=== PATIENT | female | born 1945 | race Caucasian/White ===

== ENCOUNTER → 2017-03-04 | Outpatient (CLI) | payer MEDICARE ==
--- NOTE | 2017-03-04 15:52 | MAMMOGRAPHY REPORT ---
BILATERAL DIGITAL SCREENING MAMMOGRAM TOMOSYNTHESIS WITH CAD: 03/04/2017 CLINICAL HISTORY: Routine screening. Patient has no complaints. TECHNIQUE: Breast tomosynthesis in addition to standard 2D mammography was performed. Current study was also evaluated with a Computer Aided Detection (CAD) system. COMPARISON: Comparison is made to exams dated: 07/06/2012 mammogram, 07/06/2011 mammogram, 06/19/2010 ma mmogram, 05/31/2009 mammogram - [facility], 05/30/2008, and 05/30/2007. BREAST COMPOSITION: There are scattered areas of fibroglandular density in both breasts. FINDINGS: There is a 10 mm focal asymmetry with associated architectural distortion in the right uppe r outer quadrant, best seen on the tomosynthesis images, for which spot compression tomosynthesis vie ws and possible breast ultrasound are recommended for further evaluation. The remainder of both breasts are stable compared to prior exams, without suspicious masses, calcific ations, or areas of architectural distortion noted. Other bilateral asymmetries are stable compared to prior exams. IMPRESSION: ACR BI-RADS CATEGORY 0: INCOMPLETE EVALUATION: NEED ADDITIONAL IMAGING EVALUATION Right breast focal asymmetry with associated architectural distortion, for which additional imaging e valuation is recommended. The patient will be called to schedule an appointment. Approximately 10% of breast cancers are not detected with mammography. A negative mammographic report should not delay biopsy if a clinically suggestive mass is present. Cassi Snowden M.D. /:03/04/2017 12:12:32 Prism Inspector: Kesha Merino, [facility] letter sent: Addl Imaging 0 BI-RADS Code: ACR BI-RADS Category 0: Incomplete Evaluation: Need Additional Imaging Evaluation
== END | disposition home or self-care (01) ==
LOC: C.MAMM 10:29
PROVIDERS: ATTEND Family Medicine
DX: Z12.31 Encounter for screening mammogram for malignant neoplasm of breast (principal); N64.89 Other specified disorders of breast

== ENCOUNTER → 2017-03-10 | Outpatient (CLI) | payer MEDICARE ==
--- NOTE | 2017-03-10 15:42 | MAMMOGRAPHY REPORT ---
ULTRASOUND OF RIGHT BREAST: 03/10/2017 CLINICAL HISTORY: 71-year-old woman called back from screening mammography for a 10 mm focal asymmetr y with associated architectural distortion in the upper outer middle to posterior right breast. COMPARISON: Comparison is made to exams dated: 03/04/2017 mammogram, 07/06/2012 mammogram, 07/06/2011 m ammogram, 06/19/2010 mammogram, 05/31/2009 mammogram - [facility], and 05/30/2008. FINDINGS: Targeted ultrasound was performed in the right upper outer quadrant to assess for the 10 m m focal asymmetry with associated architectural distortion seen on recent screening mammogram. In th e 10:00 axis, 10 cm from the nipple, there is a hypoechoic and isoechoic solid mass with ill-defined and irregular margins, measuring approximately 7.7 x 4.0 x 5.6 mm. The architectural distortion is n ot well appreciated on ultrasound, but this mass likely correlates with the mammographic finding. Th is is suspicious for malignancy and definitive characterization with an ultrasound-guided core needle biopsy is recommended. Additional scanning was performed in the right axilla, which demonstrates 2 morphologically normal ly mph nodes with thin cortices. No suspicious lymphadenopathy is currently identified. IMPRESSION: ACR BI-RADS CATEGORY 5: HIGHLY SUGGESTIVE OF MALIGNANCY - FOLLOW-UP RECOMMENDED 1. There is an irregular and ill-defined solid 7.7 mm mass in the 10:00 right breast, 10 cm from the nipple on ultrasound, thought to correlate with the mammographic focal asymmetry with associated arc hitectural distortion. This mass is suspicious for malignancy and definitive characterization with a n ultrasound-guided core biopsy is recommended. 2. No suspicious lymphadenopathy identified in the right axilla on targeted ultrasound. These results and recommendations were discussed with the patient at the time of the exam. She tenta tively scheduled the right breast biopsy prior to leaving our department. Marta River M.D. ay/:03/10/2017 11:47:30 Manager Primary Care: Dr. Marta River, [facility] letter sent: Abnormal 4/5 BI-RADS Code: ACR BI-RADS Category 5: Highly Suggestive Of Malignancy
== END | disposition home or self-care (01) ==
LOC: C.MAMM 10:28
PROVIDERS: ATTEND Family Medicine
DX: N64.9 Disorder of breast, unspecified (principal); N63.10 Unspecified lump in the right breast, unspecified quadrant

== ENCOUNTER → 2017-03-17 | Outpatient (CLI) | payer MEDICARE ==
--- NOTE | 2017-03-17 09:58 | Discharge Instructions ---
Discharge Instructions Procedure Procedure Date: Mar 17, 2017. Reason for visit: Right Mass. Discharge Discharge Date: Mar 17, 2017. Discharge Diagnosis: status post breast biopsy Instructions Activity Recommendations: Additional Limitations (see below) Return to School/Work: no limitations Recommended Home Diet: No Limitations Provider Instructions: ACTIVITY RECOMMENDATIONS: * No lifting, pushing, pulling or exercising the affected side for three days. RETURN TO SCHOOL/WORK: * You may return to work/school after the procedure, but do not perform any strenuous activities for 24 to 48 hours. MEDICATIONS: * Tylenol (two 325 mg) every four to six hours if needed for mild pain (if not allergic to Tylenol). DIET: * Resume previous diet. SPECIAL CARE INSTRUCTIONS: * Keep biopsy site dry for 24 hours. May shower after 24 hours, but do not soak (bathe) incision. * May remove Tegaderm (plastic patch) tomorrow AFTER showering. * Leave the steri-strips on for one week. Allow the steri-strips to fall off by themselves. If not off after one week, you may remove them. You may place a Bandaid crosswise over the strips, if desired. * Apply ice 10 minutes on and 10 minutes off as needed. * Wear a bra at bedtime to sleep more comfortably for 2-3 days. * Your referring physician should have the results after approximately 5 to 7 business days. * Call for unusual bleeding, fever, drainage, etc or if you have any questions call during normal business hours or after hours call Dr Snowden, [phone]. FOLLOW UP VISIT: Follow-up with Referring Physician as scheduled. Elizabeth Barker Recommendations: Call your doctor if: * Temperature above 101 degrees * Pain not relieved by pain medicine ordered * There is increased drainage or redness from any incision * You have any unanswered questions or concerns. Your Doctors Instructions noted above were prepared by provider Cassi Snowden. Patient Signature Section: Patient Instructions Signature Page Bia Hussein Patient (or Guardian) Signature/Date: I have read and understand the instructions given to me by my caregivers. Caregiver/RN/Doctor Signature/Date: The above-named patient and/or guardian has received patient instructions on this date. + Original Patient Signature Page (only) stays with chart. Please make copy for patient.
--- NOTE | 2017-03-17 15:21 | MAMMOGRAPHY REPORT ---
ULTRASOUND GUIDED BIOPSY RIGHT BREAST: 03/17/2017 CLINICAL HISTORY: Right 10:00 breast mass. PATIENT CONSENT: The procedure, risks and benefits were discussed with the patient and informed writt en consent was obtained. A timeout was performed immediately prior to the procedure. PROCEDURE DESCRIPTION: With ultrasound guidance, aseptic technique, and lidocaine as the local anesth etic (1% lidocaine to anesthetize the skin and 1% lidocaine with epinephrine to anesthetize the deepe r tissues), the mass of concern in the right 10:00 breast posteriorly was sampled 4 times with a 14-g auge Achieve biopsy needle (using open-bevel technique due to the far posterior location) . Immediat sayda thereafter, with ultrasound guidance, aseptic technique, and lidocaine as the local anesthetic, a metallic localizer clip was placed at the biopsy site. Direct pressure was applied to the site imme diately post procedure and hemostasis was achieved. Postprocedure unilateral mammograms were perform ed to confirm placement of the clip in the expected location of the breast mass. The patient tolerate d the procedure without complication. She was given wound care instructions. The specimens were sent to pathology for analysis. COMPARISON: Comparison is made to exams dated: 03/10/2017 ultrasound, 03/04/2017 mammogram, 07/06/2012 mammogram, 07/06/2011 mammogram, 06/19/2010 mammogram, and 05/31/2009 mammogram - [facility] enter. IMPRESSION: ULTRASOUND GUIDED BIOPSY Ultrasound guided core needle biopsy of the right 10:00 breast mass, with clip placement. The patien t will receive pathology results from her referring provider. Cassi Snowden M.D. ah/:03/17/2017 10:00:01 Attending Technologist: Sheila DE(R)(M), [facility] [employer] Software Engineer: Cassi Snowden MD, [facility]
--- NOTE | 2017-03-17 15:24 | MAMMOGRAPHY REPORT ---
UNILATERAL RIGHT DIGITAL DIAGNOSTIC MAMMOGRAM TOMOSYNTHESIS: 03/17/2017 CLINICAL HISTORY: Status post right breast biopsy. TECHNIQUE: Breast tomosynthesis in addition to standard 2D mammography was performed. Current study was also evaluated with a Computer Aided Detection (CAD) system. Postprocedural right CC and ML wilson synthesis images including C views were obtained. COMPARISON: Comparison is made to exams dated: 03/10/2017 ultrasound, 03/04/2017 mammogram, 07/06/2012 mammogram, 07/06/2011 mammogram, 06/19/2010 mammogram, and 05/31/2009 mammogram - [facility] enter. BREAST COMPOSITION: There are scattered areas of fibroglandular density in the right breast. FINDINGS: A new biopsy marker clip is seen at the site of the biopsied mass in the right upper outer quadrant. No significant postbiopsy hematoma is seen. IMPRESSION: POST PROCEDURE IMAGING FOR MARKER PLACEMENT New biopsy marker clip status post right breast biopsy. Pathology results are pending. Approximately 10% of breast cancers are not detected with mammography. A negative mammographic report should not delay biopsy if a clinically suggestive mass is present. Cassi Snowden M.D. /:03/17/2017 11:12:21 Glycerin Operator: Sheila DE(Ekaterina)(M), [facility] BI-RADS Code: Post Procedure Imaging For Marker Placement
== END | disposition home or self-care (01) ==
LOC: C.MAMM 09:07
PROVIDERS: ATTEND Family Medicine
DX: R92.8 Other abnormal and inconclusive findings on diagnostic imaging of breast (principal); N63.10 Unspecified lump in the right breast, unspecified quadrant; D49.3 Neoplasm of unspecified behavior of breast

== ENCOUNTER 2017-04-22 07:46 | Observation (INO) | payer MEDICARE ==
[2017-04-15 09:10] VITALS: BMI 28.0
[~2017-04-22] VITALS: Ht 162.6 cm; Wt 75.0 kg
[2017-04-22] VITALS (9 sets, daily range): BP systolic 126–171; BP diastolic 70–78; PULSE 71–85; TEMP 36.4–37.4; O2SAT 94–99; Ht 162.6 cm; Wt 75.0 kg
[~2017-04-22 07:46] MED LIST: LEVO88TA3 PO
[2017-04-22] MEDS ORDERED: ONDANSETRON INJ 2 MG/ML 2 ML VIAL IV PRN ×3 (08:45→16:45)
[2017-04-22] MEDS ORDERED: ATROPINE SULFATE 0.1 MG/ML 5ML SYR IV PRN (08:45)
[2017-04-22] MEDS ORDERED: HYDROmorphone INJ 1 MG/ML SYR IV PRN (08:45)
[2017-04-22] MEDS ORDERED: FENTANYL CITRATE INJ 50 MCG/1 ML 2 ML VIAL IV PRN (08:45)
[2017-04-22] MEDS ORDERED: EpHEDrine SULFATE INJ 50 MG/ML AMP IV PRN (08:45)
[2017-04-22] MEDS ORDERED: CEFAZOLIN 2000MG IV PUSH 15 ML IV SCH (10:00)
[2017-04-22] MEDS ORDERED: FENTANYL CITRATE INJ 50 MCG/1 ML 2 ML VIAL ONE ×4 (10:45→13:37)
[2017-04-22] MEDS ORDERED: MIDAZOLAM HCL 1 MG/ML 2ML VIAL ONE (10:45)
[2017-04-22] MEDS ORDERED: BUPIVACAINE 0.5 % 5 MG/1 ML MPF 30ML VIAL ONE (11:23)
[2017-04-22] MEDS ORDERED: ISOSULFAN BLUE 10 MG/ML VIAL 5 ML ONE (11:23)
--- NOTE | 2017-04-22 11:24 | DIAGNOSTIC IMAGING REPORT ---
LYMPHOSCINTIGRAPHY BREAST CLINICAL HISTORY: RIGHT BREAST CA breast carcinoma TECHNIQUE: Sequential periareolar injections of a total of 0.527 mCi technetium 99m lymphocele COMPARISON STUDY: None FINDINGS: Imaging to 2 hours shows no identification of a sentinel node. IMPRESSION: 1. Successful periareolar injection. 2. No evidence for a sentinel node x 2 h of imaging. The above report was generated using voice recognition software. It may contain grammatical, syntax or spelling errors. Electronically signed by: Clark Meyers M.D. 04/22/2017 11:22 AM Dictated Date/Time: 04/22/2017 11:21 AM
--- NOTE | 2017-04-22 11:24 | History & Physical Bridge Note ---
H&P Re-Evaluation Bridge Note: I have examined the patient, reviewed the History & Physical and in the interval since the performance of the History & Physical I have noted the following changes of clinical significance: No changes noted
[2017-04-22] MEDS ORDERED: HYDROmorphone INJ 2 MG/ML SYR/VIAL ONE (13:42)
[2017-04-22] MEDS ORDERED: OXYC-57 PO (14:08)
--- NOTE | 2017-04-22 14:09 | Discharge Instructions ---
Discharge Instructions Date of Service Apr 22, 2017. Visit Reason for Visit: Right Breast Cancer W/Hosp Loc & Nm Lymph Scan Discharge Discharge Diagnosis / Problem: right lumpectomy, lymph node biopsy Discharge Goals Goal(s): Improve disease control Activity Recommendations Activity Limitations: as noted below Shower/Bathe: no limitations Driving or Machine Use: resume 3 days after discharge Anesthesia . Post Anesthesia Instructions: If you have had General Anesthesia or IV Sedation: * Do not drive today. * Resume driving when surgeon permits. * Do not make important decisions or sign legal documents today. * Call surgeon for: 1. Temperature elevations greater than 101 degrees F. 2. Uncontrollable pain. 3. Excessive bleeding. 4. Persistent nausea and vomiting. 5. Medication intolerance (nausea, vomiting or rash). * For nausea and vomiting use only clear liquids such as: tea, soda, bouillon until nausea subsides, then gradually increase diet as tolerated. * If you have any concerns or questions, call your surgeon's office. If physician is unavailable and it is an emergency, call 911 or go to the nearest emergency room. . Instructions / Follow-Up Instructions / Follow-Up Dr. Salazar in 1-2 weeks as planned, call [phone] if you do not already have an appt or have any questions Diet Recommendations Recommended Home Diet: no limitations Pending Studies Studies pending at discharge: yes List of pending studies: pathology Medical Emergencies . Who to Call and When: Medical Emergencies: If at any time you feel your situation is an emergency, please call 911 immediately. . Non-Emergent Contact Non-Emergency issues call your: Surgeon Call Non-Emergent contact if: you have a fever, temperature is above 101.5, your pain is not controlled, wound has increased redness, you have any medication questions . . "Provider Documentation" section prepared by Tay Matthew. .
[2017-04-22] MEDS ORDERED: DEXAMETHASONE SOD INJ 4 MG/ML VIAL ONE (14:30)
[2017-04-22] MEDS ORDERED: ONDANSETRON INJ 2 MG/ML 2 ML VIAL ONE (14:30)
[2017-04-22] MEDS ORDERED: LIDOCAINE HCL 2% 2 ML VIAL (20MG/ML) ONE (14:30)
[2017-04-22] MEDS ORDERED: PROPOFOL IV EMULSION 10 MG/ML 20 ML VIAL IV ONE (14:30)
[2017-04-22] MEDS ORDERED: EpHEDrine SULFATE 50MG/5ML SYR ONE ×2 (14:30→14:39)
[2017-04-22] MEDS ORDERED: RANITIDINE HCL 25 MG/ML INJ ONE (14:30)
--- NOTE | 2017-04-22 14:58 | [facility] Post Operative Brief Note ---
Immediate Operative Summary Operative Date Apr 22, 2017. Pre-Operative Diagnosis Right breast cancer Post-Operative Diagnosis Same Procedure(s) Performed Right Breast Lumpectomy with Needle Localization and Right Axillary Lymph Node Dissection Surgeon Dr Salazar [employer] Specialist Surgeon(s) Alicia Bethea PA-C Estimated Blood Loss 20 ml Findings Consistent with Post-Op Diagnosis No sentinel node identified despite methylene blue technetium injection Specimens A. Right breast mass short suture superior, long suture lateral, double suture deep B. Right axillary lymph node dissection Drains 7 mm SAMARA drain in the right axilla Anesthesia Type General Complication(s) none Disposition Disposition: Recovery Room / PACU
--- NOTE | 2017-04-22 15:05 | MAMMOGRAPHY REPORT ---
NEEDLE LOCALIZATION RIGHT BREAST: 04/22/2017 CLINICAL HISTORY: Biopsy-proven malignancy in the right 10:00 breast. PROCEDURE DESCRIPTION: With imaging guidance, aseptic technique, and 1% lidocaine as the local anesth etic, the mass and associated biopsy marker clip in the right 10:00 breast was localized with a 7.5 c m Edward II needle. The path of approach was lateral. The biopsy marker clip and mass are located along the distal portion of the wire, at and just proximal to the marco. The patient tolerated the pro cedure without complication. COMPARISON: Comparison is made to exams dated: 03/17/2017 mammogram, 03/17/2017 ultrasound biopsy, 02/16 ultrasound, 03/04/2017 mammogram, 07/06/2012 mammogram, and 07/06/2011 mammogram - [facility]. IMPRESSION: NEEDLE LOCALIZATION Mammographic-guided needle localization of mass and associated biopsy clip in the right 10:00 breast. Cassi Snowden M.D. ah/:04/22/2017 08:20:53 Territory Sales Professional: Sheila DE(R)(M), [facility]
--- NOTE | 2017-04-22 15:05 | MAMMOGRAPHY REPORT ---
SPECIMEN RIGHT BREAST: 04/22/2017 CLINICAL HISTORY: Status post right breast surgical excision. COMPARISON: Comparison is made to exams dated: 03/17/2017 mammogram, 03/17/2017 ultrasound biopsy, 02/16 ultrasound, 07/06/2012 mammogram, 03/04/2017 mammogram, and 07/06/2011 mammogram - [facility]. Findings: A radiograph was performed on the right breast surgical specimen. The localized biopsy mar ker clip and intact needle localization wire are present centrally within the specimen. Results were relayed to Dr. Salazar over the telephone. IMPRESSION: SPECIMEN The imaged specimen contains the preoperatively-localized biopsy clip. Cassi Snowden M.D. ah/:04/22/2017 13:17:28 Program Paraprofessional: Sheila DE(Ekaterina)(M), [facility]
[2017-04-22] MEDS ORDERED: SODIUM CHLORIDE 0.9% 1000ML 1,000 ML IV SCH (15:09)
[2017-04-22] MEDS ORDERED: OXYCODONE/ACETAMINOPHEN 5-325 TAB PO PRN ×4 (15:15→16:45)
--- NOTE | 2017-04-22 15:15 | [facility] Operative Report ---
Operative Report Operative Date Apr 22, 2017. Pre-Operative Diagnosis Right breast cancer Post-Operative Diagnosis Same Procedure(s) Performed Right breast wire localized lumpectomy right axillary lymph node dissection Surgeon Dr Salazar Ivory Carver Surgeon(s) Alicia Bethea PA-C Estimated Blood Loss 20 ml Findings Technetium injection did not appear to reach the axilla on lymphoscintigraphy and was not identified with the gamma probe. Methylene blue was injected around the areola, but upon entry into the axilla no sentinel node was identified. A right axillary lymph node dissection was then performed. Right breast lumpectomy specimen x-ray showed the clip and wire and specimen. Specimens A. Right breast mass short suture superior, long suture lateral, double suture deep B. Right axillary lymph node dissection Drains 7 mm SAMARA drain in the right axilla Anesthesia General Complication(s) None Disposition Recovery Room / PACU Indications 71-year-old female with right breast cancer, plan for right breast wire localized lumpectomy with right axillary sentinel lymph node biopsy. The risks of the procedure were discussed, all questions were answered, and the patient agreed to proceed with surgery as planned. Description of Procedure The patient had a localization wire placed in radiology prior to surgery. The films were reviewed for incisional planning. Patient had lymphoscintigraphy performed prior to the procedure and the axilla was examined with a gamma probe and there was no uptake into the axilla. Methylene blue was then injected around the areola and the breast was massaged. The patient was properly identified, consented, and taken to the operating room where she was placed in the supine position. General endotracheal anesthesia was induced. SCDs and a safety belt were placed. Preoperative antibiotics were administered. The patient's bilateral chest was prepped and draped in the standard sterile fashion. Surgical timeout was performed and all parties were in agreement that this was the correct patient and procedure to be performed and we continued as planned. An incision was made in the right axilla in a natural skin crease and deepened down to subcutaneous tissue with electrocautery. The gamma probe was used but the axilla was silent. The axilla was explored and blue dye was not identified. At this point we decided to perform a right axillary lymph node dissection. Lymph node packet was excised down to the serratus muscle medially , latissimus muscle laterally, the axillary vein superiorly, pectoralis superiorly, the teres major posteriorly. Clips were used to control small vessels and lymphatics. Lymph node packet was passed off the table specimen labeled right axillary lymph node dissection. We limited the dissection to level 1 nodes but did not go under the pectoralis minor muscle. The wound was packed and attention turned to the breast lesion. A transverse incision was made on the upper outer quadrant of the right breast and deepened down through the subcutaneous tissue with electrocautery. Flaps were raised in all directions. Wire was delivered into the incision. The breast mass was circumferentially dissected down to chest wall, excised, and passed off the table as specimen. The specimen was oriented. A mammogram was performed of the specimen in radiology and confirmed excision of the wire, clip , and previously imaged abnormality. The wounds were irrigated and hemostasis was confirmed. The skin of both incisions was closed with interrupted 3-0 Vicryl deep dermal sutures, followed by 4-0 Monocryl running subcuticular suture. Dermabond was placed over the wounds. The patient was extubated in the operating room and taken to the PACU where she recovered without apparent incident. All sponge, instrument and needle counts were correct at the conclusion of the procedure. The patient tolerated the procedure well. The physician's client account assistant was present and scrubbed for the entirety of the case. She was essential in positioning the patient, prepping and draping, removal of the breast mass, retraction and exposure, assisting with axillary dissection, closure of the wound, and placement of the dressings. I attest to the content of the Intraoperative Record and any orders documented therein. Any exceptions are noted below.
--- NOTE | 2017-04-22 15:47 | Anesthesiology Progress Note ---
Anesthesia Post Op Note Date & Time Apr 22, 2017 at 15:45 Vital Signs Pain Intensity: 0 Vital Signs Past 12 Hours Date Time Temp Pulse Resp B/P (MAP) Pulse Ox O2 Delivery O2 Flow Rate FiO2 04/22/17 15:35 79 21 147/73 (102) 97 Oxymask 10 04/22/17 15:25 80 15 152/70 (105) 100 Oxymask 10 04/22/17 15:14 36.3 87 15 141/74 (88) 99 Oxymask 10 04/22/17 11:18 36.9 71 18 171/78 (109) 95 Room Air Notes Mental Status: alert / awake / arousable, participated in evaluation Pt Amnestic to Procedure: Yes Nausea / Vomiting: adequately controlled Pain: adequately controlled Airway Patency, RR, SpO2: stable & adequate BP & HR: stable & adequate Hydration State: stable & adequate Anesthetic Complications: no major complications apparent
[2017-04-22] MEDS ORDERED: MoRPHine SULFATE 2 MG/ML CARP IV PRN ×2 (16:45)
[2017-04-22] MEDS ORDERED: MoRPHine SULFATE 4 MG/ML 1 ML CARP\\VIAL IV PRN (16:45)
[2017-04-22] MEDS ORDERED: IV FLUIDS COMPLETED PRN (16:45)
[2017-04-22] MEDS ORDERED: NURSING VERBAL MED ORDER ONE (18:00)
[2017-04-22] MEDS: LACTATED RINGER'S 1000ML 1,000 ML IV SCH (21:18)
[2017-04-23 04:00] VITALS: BP_SYST 104; BP_SYST 113; BP_DIAS 70; BP_DIAS 87; PULSE 73; PULSE 80; TEMP 36.6; TEMP 36.8; O2SAT 97; O2SAT 99
[2017-04-23] MEDS ORDERED: LEVOTHYROXINE 88 MCG TAB PO SCH (06:00)
[2017-04-23] MEDS: LACTATED RINGER'S 1000ML 1,000 ML IV SCH (06:03)
--- NOTE | 2017-04-23 06:51 | Surgery Progress Note ---
Surgery Progress Note Date of Service Apr 23, 2017. Subjective Post OP Day: 1 + feeling well, + flatus, + pain controlled, + diet (Tolerating regular diet.), No complaints, No bowel movement, No nausea, No vomiting Objective Vital Signs: Date Time Temp Pulse Resp B/P (MAP) Pulse Ox O2 Delivery O2 Flow Rate FiO2 04/23/17 04:00 36.8 73 16 113/70 (84) 97 Room Air 04/23/17 00:00 Room Air 04/22/17 23:00 36.8 73 16 126/70 (88) 97 Room Air 04/22/17 20:44 36.8 72 18 126/72 (90) 94 Room Air 04/22/17 19:27 36.6 81 18 133/74 (93) 96 Room Air 04/22/17 18:30 37.4 84 18 134/73 (93) 94 Room Air 04/22/17 18:00 Room Air 04/22/17 18:00 36.4 85 18 129/77 (94) 94 Room Air 04/22/17 17:30 94 Room Air 04/22/17 17:30 36.4 77 14 133/76 (95) 94 Room Air 04/22/17 16:40 36.6 73 16 143/71 99 Room Air 04/22/17 16:00 36.6 78 16 146/70 99 Room Air 04/22/17 15:55 36.2 77 16 145/65 (81) 95 Room Air 04/22/17 15:45 78 21 138/68 (101) 97 Room Air 04/22/17 15:35 79 21 147/73 (102) 97 Oxymask 10 04/22/17 15:25 80 15 152/70 (105) 100 Oxymask 10 04/22/17 15:14 36.3 87 15 141/74 (88) 99 Oxymask 10 04/22/17 11:18 36.9 71 18 171/78 (109) 95 Room Air Physical Exam: SAMARA drainage (Serosanguinous 65ml output yesterday, 60ml output so far today.) General Appearance: WD/WN, no apparent distress Head: normocephalic, atraumatic Respiratory/Chest: no respiratory distress Incision(s): clean, dry, intact, no erythema, no drainage, findings (Mild incisional tenderness.) Assessment & Plan POD #1 s/p Right breast wire localized lumpectomy right axillary lymph node dissection Patient reports no pain at this time. Tolerating regular diet. Urinating without trouble. SAMARA in place with 60ml output so far this AM - keep for now, possibly pull prior to d/c. Probable d/c today. Will discuss findings with Dr. Salazar. Please contact with questions or concerns.
[2017-04-23 07:30] VITALS: O2SAT 95
[2017-04-23 08:13] VITALS: BP 123/74; PULSE 66; TEMP 36.8; O2SAT 95
--- NOTE | 2017-04-23 10:15 | Anesthesiology Progress Note ---
Anesthesia Post Op Note Date & Time Apr 23, 2017 at 10:15 Vital Signs Pain Intensity: 0.0 Vital Signs Past 12 Hours Date Time Temp Pulse Resp B/P (MAP) Pulse Ox O2 Delivery O2 Flow Rate FiO2 04/23/17 08:13 36.8 66 18 123/74 (90) 95 Room Air 04/23/17 07:30 95 Room Air 04/23/17 04:00 36.8 73 16 113/70 (84) 97 Room Air 04/23/17 00:00 Room Air 04/22/17 23:00 36.8 73 16 126/70 (88) 97 Room Air Notes Mental Status: alert / awake / arousable, participated in evaluation Pt Amnestic to Procedure: Yes Nausea / Vomiting: adequately controlled Pain: adequately controlled Airway Patency, RR, SpO2: stable & adequate BP & HR: stable & adequate Hydration State: stable & adequate Anesthetic Complications: no major complications apparent
[2017-04-23 12:02] VITALS: BP 123/74; PULSE 66; TEMP 36.8; O2SAT 95
--- NOTE | 2017-05-02 07:56 | Discharge Summary ---
Discharge Summary Date of Service May 02, 2017. Admission Date/Reason Apr 22, 2017 at 11:35 Right Breast Cancer W/Hosp Loc & Nm Lymph Scan. Discharge Date/Disposition Apr 23, 2017 Home Diagnosis Principal Diagnosis: Right Breast Cancer Procedure(s) Performed Right breast wire localized lumpectomy with right axillary lymph node dissection Medication Reconciliation New Medications: Oxycodone/Acetaminophen 5MG/325MG (Percocet 5MG/325MG) Tab 1-2 TABLETS PO Q4H PRN for Pain, #30 TAB Continued Medications: Levothyroxine Sodium (Levothyroxine Sodium) 88 Mcg Tab 1 TAB PO QAM for 30 Days, #30 TAB 5 Refills Admission Physical Exam As per Admitting History & Physical. Hospital Course Ms. Hussein is a pleasant 71-year-old female who presented to [facility] for planned Right breast wire localized lumpectomy with right axillary lymph node dissection with Dr. Salazar. 7mm SAMARA drain was placed in right axilla. Pre-Operative Dx- Right Breast Cancer Post-Operative Dx- Same Patient was admitted for observation to Med/Surg floor post-operatively for pain control. POD#1- patient did well overnight- no new concerns or complaints. Pain was controlled. Patient tolerated regular diet. Denied nausea or vomiting. Patient was deemed suitable for discharge. She was discharged with SAMARA drain in place. Patient to follow-up with Dr. Salazar in [facility] for drain removal and incision checks. Return precautions discussed with patient. Both verbal and written discharge instructions provided to patient and patient's spouse. Discharge Instructions Please refer to the electronic Patient Visit Report (Discharge Instructions) for additional information.
== END 2017-04-23 13:51 | disposition home or self-care (01) ==
LOC: C.ACU 07:46 → C.MSW 11:35 → ENRESERV 16:59
PROVIDERS: ADMIT Surgery; ATTEND Surgery
DX: C50.911 Malignant neoplasm of unspecified site of right female breast (principal); M19.90 Unspecified osteoarthritis, unspecified site; E66.9 Obesity, unspecified; Z17.0 Estrogen receptor positive status [ER+]; Z88.1 Allergy status to other antibiotic agents; Z90.49 Acquired absence of other specified parts of digestive tract; Z90.710 Acquired absence of both cervix and uterus; Z82.49 Family history of ischemic heart disease and other diseases of the circulatory system; Z80.0 Family history of malignant neoplasm of digestive organs